=== PATIENT | male | born 1960 | race Caucasian/White ===

== ENCOUNTER 2021-05-04 22:13 | Emergency (ER) | payer BC, OTHER ==
--- NOTE | 2021-05-04 22:30 | NUR ---
Patient was called to be traiged but was not present in the waiting room or outside of ER.
--- NOTE | 2021-05-04 22:40 | NUR ---
Per formula clerk, patient went to registration window and states "I don't want to be seen anymore." Patient was not traiged or seen by ERMD.
== END 2021-05-04 22:40 | disposition left against medical advice (07) ==
LOC: ER 22:16
DX: Z53.21 Procedure and treatment not carried out due to patient leaving prior to being seen by health care provider (principal)